=== PATIENT | female | born 1975 | race Asian ===

== ENCOUNTER 2017-08-30 05:11 | Day surgery (SDC) | payer OTHER ==
[2017-08-24 12:30] VITALS: BMI 20.9
[2017-08-30 06:57] VITALS: TEMP 97.8
[2017-08-30] MEDS ORDERED: ceFAZolin SODIUM 1 GM VIAL ONE ×2 (07:07→08:52)
[2017-08-30] MEDS ORDERED: ePHEDrine SULFATE 50 MG/1 ML AMPULE ONE (07:07)
[2017-08-30] MEDS ORDERED: MIDAZOLAM HCL 2 MG/2 ML SINGLE DOSE VIAL ONE ×2 (07:08)
[2017-08-30] MEDS ORDERED: PROPOFOL 20 ML ONE ×4 (07:08)
[2017-08-30] MEDS ORDERED: SUCCINYLCHOLINE CHLORIDE 200 MG/10 ML VIAL ONE (07:08)
[2017-08-30] MEDS ORDERED: BUPIVACAINE HCL/PF 0.5% (5MG/ML) 10 ML VIAL ONE (07:28)
--- NOTE | 2017-08-30 08:18 | HP ---
Satellite [facility] - Chief Complaint Chief Complaint: right small finger mass History of Present Illness: right small finger mass History Source: Patient Limitations to Obtaining History: No Limitations - Past Medical History Allergies/Adverse Reactions: Allergies Allergy/AdvReac Type Severity Reaction Status Date / Time levofloxacin [Levofloxacin] Allergy Intermediate Rash Verified 03/27/13 11:55 ...LMP: 08/11/17 - Current Medications Current Medications: Home Medications Medication Instructions Recorded Acetaminophen [Tylenol .Regular 650 mg PO Q4H PRN #0 tablet 03/30/13 Strength -] Ibuprofen [Motrin -] 600 mg PO Q4H PRN #0 tablet 03/30/13 Multivitamin [Multiple Vitamins] 1 each PO DAILY 08/24/17 Satellite Physical Exam - Physical Examination Vital Signs: Vital Signs Period Temp Pulse Resp BP Sys/Napoles Pulse Ox Last 24 Hr 97.8 F 70 20 117/74 General Appearance: Well Nourished ENT: Clear Lung: Clear to auscultation Heart: Regular rate & rhythm Breasts: Soft Abdomen: Soft Extremities: No edema Satellite Impression/Plan - Impression/Plan Impression: right small finger mass Operative Procedure: excision mass right small finger Date to be Performed: 08/30/17
[2017-08-30] MEDS ORDERED: LIDOCAINE HCL/PF 2% SDV 5ML VIAL ONE (08:20)
[2017-08-30] MEDS ORDERED: ceFAZolin SODIUM 1 GM VIAL IVPB ONE (08:27)
[2017-08-30] MEDS ORDERED: SODIUM CHLORIDE 0.9% P/F 10 ML VIAL IJ ONE (08:52)
--- NOTE | 2017-08-30 09:05 | OP ---
Operative Note - Note: Operative Date: 08/30/17 Pre-Operative Diagnosis: right small finger mass Operation: right small finger mass excision Post-Operative Diagnosis: Same as Pre-op Surgeon: Vargas Carrero Anesthesiologist/ENTERPRISE ANALYST: Eitan Kelly Anesthesia: Local, MAC Specimens Removed: mass right small finger Estimated Blood Loss (mls): 0 Drains, Volume Out (mls): 0 Blood Volume Replaced (mls): 0 Fluid Volume Replaced (mls): 500 Operative Report Dictated: Yes
--- NOTE | 2017-08-30 09:33 | OP ---
DATE OF OPERATION: 08/30/2017 PREOPERATIVE DIAGNOSIS: Right small finger mass. POSTOPERATIVE DIAGNOSIS: Right small finger mass. PROCEDURE PERFORMED: Right small finger mass excision. SURGEON: Abena Lew MD CHAPTER RELATIONS ADMINISTRATOR: Eitan Kelly MD ANESTHESIA: MAC anesthesia. Local injection of 6 mL of 0.5% Marcaine and 1% lidocaine. DRAINS: None. COMPLICATIONS: None. SPECIMENS: Small finger mass/cyst right thumb. FLUID REPLACEMENT: 500 mL PlasmaLyte. BLOOD LOSS: None. BLOOD GIVEN: None. INDICATIONS: The patient is a 42-year-old female with the preoperative diagnosis of a mass in the dorsal aspect of the right small finger. It has become bigger, more painful and is deforming the nail. After understanding the potential risks, complications, alternatives and benefits of surgical versus nonsurgical treatment, the patient elected to undergo this procedure. The patient understands that the nail may never be normal and there is a risk of recurrence. PROCEDURE: The patient was brought to the operating room, peripheral IV placed, IV sedation given. One gram of IV Ancef was given. MAC anesthesia was induced. The right upper extremity was prepped and draped in sterile fashion. A transverse incision was marked out with a marking pen. Then 6 mL of 0.5% Marcaine and 1% lidocaine mix was injected in and around the surgical incision. The right upper extremity was then elevated and exsanguinated with an Esmarch bandage, and the tourniquet inflated to 250 mmHg. A transverse incision was made with a number 15 scalpel blade. At this point the mass popped and classic ganglion cyst-type fluid was expressed. Skin hooks were placed under both skin flaps, and I did careful dissection using a fresh number 15 scalpel blade in the subcutaneous area, circumferentially around the cyst, which was then excised and passed off the table as a specimen. The area was irrigated, washed out, cauterized and inspected. There was no big bone spur and overall what I could see of the germinal matrix looked fine. Therefore, it was irrigated again and closure done with a single interrupted 4-0 nylon suture. The area was then washed and dried, covered with Xeroform, 4 x 4 gauze Maribeth and Coban. The tourniquet was taken down after a total tourniquet time of 12 minutes. There were no complications during the case. The patient tolerated the procedure quite well and was brought to the ambulatory recovery room in stable condition. ABENA LEW M.D. [id number]
[2017-08-30 10:46] VITALS: BP 130/70; PULSE 64
--- NOTE | 2017-08-31 13:22 | PATH ---
Surgical Pathology Report Patient Name: SANDRA FONTAINE Med. Rec. #: [id number] /Age/Gender: 1975 (Age: 42) / F Account: [id number] Location: [facility] SURGICAL Taken: 08/30/2017 Received: 08/30/2017 Reported: 08/31/2017 Physicians: Vargas Carrero M.D. Specimen(s) Received MASS OF RIGHT SMALL FINGER Clinical History Mass small finger right hand Final Diagnosis SOFT TISSUE, RIGHT SMALL FINGER, EXCISION: GANGLION CYST. Electronically Signed Cody Richards M.D. Gross Description Received in formalin labeled "mass right small finger," is a 0.4 x 0.3 x 0.1 cm aggregate of cox soft tissue fragments. The specimen is entirely submitted in one cassette. /08/30/201708/30/2017
== END 2017-08-30 10:46 | disposition home or self-care (01) ==
LOC: JASU-SURG 05:11
PROVIDERS: ATTEND Orthopaedic Surgery
PROC: 0LB70ZZ Excision of Right Hand Tendon, Open Approach (ICD-10-PCS; principal; 2017-08-30 08:00)
DX: M67.441 Ganglion, right hand (principal)
CPT/HCPCS: 84703; 88304-TC

== ENCOUNTER 2017-11-09 05:01 | Day surgery (SDC) | payer OTHER ==
[2017-11-02 09:32] VITALS: BMI 20.2
--- NOTE | 2017-11-09 08:20 | HP ---
Satellite [facility] - Chief Complaint Chief Complaint: left hand pain, numbness, weakness History of Present Illness: left CTS History Source: Patient Limitations to Obtaining History: No Limitations - Past Medical History Allergies/Adverse Reactions: Allergies Allergy/AdvReac Type Severity Reaction Status Date / Time levofloxacin [Levofloxacin] Allergy Intermediate Rash Verified 11/02/17 09:35 ...LMP: 08/11/17 - Current Medications Current Medications: Home Medications Medication Instructions Recorded Acetaminophen [Tylenol .Regular 650 mg PO Q4H PRN #0 tablet 03/30/13 Strength -] Ibuprofen [Motrin -] 600 mg PO Q4H PRN #0 tablet 03/30/13 Multivitamin [Multiple Vitamins] 1 each PO DAILY 08/24/17 Satellite Physical Exam - Physical Examination Vital Signs: Vital Signs Period Temp Pulse Resp BP Sys/Napoles Pulse Ox Last 24 Hr 98.3 F 74 18 100/54 100 General Appearance: Well Nourished ENT: Clear Lung: Clear to auscultation Heart: Regular rate & rhythm Breasts: Soft Abdomen: Soft Extremities: No edema Satellite Impression/Plan - Impression/Plan Impression: left CTS Operative Procedure: left CTR Date to be Performed: 11/09/17
[2017-11-09] MEDS ORDERED: ONDANSETRON 4 MG/2 ML VIAL IVPUSH PRN (08:31)
[2017-11-09] MEDS ORDERED: oxyCODONE HCL 5 MG TABLET PO PRN ×2 (08:31)
[2017-11-09] MEDS ORDERED: PROPOFOL 20 ML ONE (08:38)
[2017-11-09] MEDS ORDERED: MIDAZOLAM HCL 2 MG/2 ML SINGLE DOSE VIAL ONE (08:38)
[2017-11-09] MEDS ORDERED: LACTATED RINGERS SOLUTION 1,000 ML IV SCH (08:45)
[2017-11-09] MEDS ORDERED: ceFAZolin SODIUM 1 GM VIAL IVPB ONE (09:25)
[2017-11-09] MEDS ORDERED: ceFAZolin SODIUM 1 GM VIAL ONE (09:30)
[2017-11-09] MEDS ORDERED: BUPIVACAINE HCL/PF 0.5% (5MG/ML) 10 ML VIAL IJ ONE (09:36)
[2017-11-09] MEDS ORDERED: LIDOCAINE HCL 1%, 10 MG/ML (20ML VIAL) INF ONE (09:36)
--- NOTE | 2017-11-09 10:00 | OP ---
Operative Note - Note: Operative Date: 11/09/17 Pre-Operative Diagnosis: left CTS Operation: left CTR Post-Operative Diagnosis: Same as Pre-op Surgeon: Vargas Carrero Anesthesiologist/CASE HARDENER: Bhavana Smith Anesthesia: Local, MAC Specimens Removed: tenosynovium Estimated Blood Loss (mls): 0 Drains, Volume Out (mls): 0 Blood Volume Replaced (mls): 0 Fluid Volume Replaced (mls): 500 Operative Report Dictated: Yes
[2017-11-09 10:32] VITALS: TEMP 98.4
--- NOTE | 2017-11-09 10:39 | SPEC ---
DATE OF OPERATION: PREOPERATIVE DIAGNOSIS: Left carpal tunnel syndrome. POSTOPERATIVE DIAGNOSIS: Left carpal tunnel syndrome. PROCEDURE: Left carpal tunnel tenosynovectomy. SURGEON: Vargas Carrero MD SNOWBOARD DESIGNER: No one. ANESTHESIA: , REPRODUCTIVE SURGEON MAC anesthesia local infiltration 12 mL 0.5% Marcaine, 1% lidocaine mix. DRAINS: None. COMPLICATIONS: None. SPECIMENS: Tenosynovium. BLOOD LOSS: None. FLUID REPLACEMENT: 500 mL. INDICATION FOR PROCEDURE: This patient is a 42-year-old female with a preoperative diagnosis of left carpal tunnel syndrome. After understanding the potential risks, complications, alternatives, and benefits to surgery versus nonsurgical treatment, the patient elected to undergo this procedure. DESCRIPTION OF PROCEDURE: The patient was brought to the operating room, peripheral IV placed and intravenous sedation was given. One gram of intravenous Ancef was given. MAC anesthesia was induced. A tourniquet was applied to the left upper arm and the left upper extremity was prepped and draped in sterile fashion. The entire case was done under 3.8 loupe magnification. A marking pen was utilized to ruy out a longitudinal incision in an already existing skin crease. Twenty mL of 0.5% Marcaine mixed with 1% Lidocaine was injected in and around the surgical incision. The left upper extremity was elevated, exsanguinated with an Esmarch bandage and the tourniquet inflated to 250 mmHg. A No. 15 scalpel blade was utilized to cut down through the skin. Subcutaneous hemostasis was achieved with the bipolar cautery. Dissection was done through the superficial palmar fascia. Self-retaining retractors were placed into the wound. Under direct visualization, the transverse carpal ligament was transected with a No. 15 scalpel blade, exposing the median nerve and the contents of the carpal tunnel. The distal and proximal extents of the release were completed with a Littler scissor and checked with irrigation and my small finger. They were seen to be complete. Limited dissection was done on the radial side of the median nerve and more extensive dissection was done on the ulnar side of the median nerve. The patients nerve was seen to be quite compressed by epineurium and therefore a limited epineurotomy was performed. A Ragnell retractor was used to gently retract the median nerve in a radial direction. The patient had a lot of tenosynovitis and therefore a tenosynovectomy was performed off all 9 flexor tendons. This was passed off the field as tenosynovium left wrist. The floor of the carpal tunnel was checked. There were no abnormal masses or ganglion cysts. The area was copiously irrigated and washed out and closure begun. Undyed 4-0 Vicryl was used to close the deep dermal layer. Final skin reapproximation was done with horizontal mattress 4-0 nylon sutures. The area was then washed and dried, covered with Xeroform, 4x4s, fluffs between the fingers, Webril and a 4-inch plaster roll was utilized to make a volar splint, which was then wrapped with Maribeth and Coban. The tourniquet was taken down after a total tourniquet time of 17 minutes. There were no complications during the case. The patient tolerated the procedure well and was brought to the ambulatory recovery room in stable condition. Natacha [id number]
[2017-11-09 14:26] VITALS: BP 110/69; PULSE 70
--- NOTE | 2017-11-10 16:12 | PATH ---
Surgical Pathology Report Patient Name: SANDRA FONTAINE [facility]. Rec. #: [id number] /Age/Gender: 1975 (Age: 42) / F Account: [id number] Location: [facility] SURGICAL Taken: 11/09/2017 Received: 11/09/2017 Reported: 11/10/2017 Physicians: Vargas Carrero M.D. Specimen(s) Received LEFT TENOSYNOVIUM Clinical History Left carpal tunnel Final Diagnosis TENOSYNOVIUM, LEFT, CARPAL TUNNEL RELEASE: BENIGN FIBROCONNECTIVE TISSUE. Electronically Signed Janis Rodriguez M.D. Gross Description Received in formalin labeled "left tenosynovium," is a 1.5 x 1.3 x 0.3 cm aggregate of cox-yellow, irregular portions of soft tissue, consistent with tenosynovium. The specimen is entirely submitted in one cassette. /11/09/2017 saudi11/09/2017
== END 2017-11-09 12:00 | disposition home or self-care (01) ==
LOC: JASU-SURG 05:01
PROVIDERS: ATTEND Orthopaedic Surgery
PROC: 01N50ZZ Release Median Nerve, Open Approach (ICD-10-PCS; principal; 2017-11-09 09:00)
DX: G56.02 Carpal tunnel syndrome, left upper limb (principal)
CPT/HCPCS: 84703; 88304-TC; 94760

== ENCOUNTER 2019-02-26 18:24 | Emergency (ER) | payer OTHER ==
[2019-02-26 18:40] VITALS: BP 143/87; PULSE 82; TEMP 98.2; BMI 21.5
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
== END 2019-02-26 21:44 | disposition home or self-care (01) ==
LOC: JERFT 18:24
DX: S09.8XXA Other specified injuries of head, initial encounter (principal); V47.5XXA Car driver injured in collision with fixed or stationary object in traffic accident, initial encounter; Y92.415 Exit ramp or entrance ramp of street or highway as the place of occurrence of the external cause; Y93.89 Activity, other specified; Y99.8 Other external cause status
CPT/HCPCS: 70450-TC; 84703; 99282-25